=== PATIENT | female | born 1990 | race Two or more races ===

== ENCOUNTER 2017-08-20 23:17 | Inpatient (IN) | payer SELFPAY ==
[~2017-08-20] VITALS: Ht 157.5 cm; Wt 68.9 kg
[2017-08-20] MEDS ORDERED: PENICILLIN G POT 5MILLION UNIT VIAL ONE (23:40)
[2017-08-20] MEDS ORDERED: LACT. RINGERS/OXYTOCIN 20UNITS 1,000 ML IV SCH (23:46)
[2017-08-20] MEDS: LACTATED RINGER'S 1,000 ML IV SCH (23:50)
[2017-08-21] MEDS ORDERED: PENICILLIN G POT 5MIL/D5 50ML 50 ML IV ONE
[2017-08-21] MEDS ORDERED: DERMOPLAST 60ML BOTTLE TOP PRN
[2017-08-21] MEDS ORDERED: LIDOCAINE 2%HCL (LOCAL ANESTH.) INJ 20ML MDV IJ ONE
[2017-08-21] MEDS ORDERED: METHYLERGONOVINE MALEATE 0.2 MG/ML AMP IM PRN
[2017-08-21] MEDS ORDERED: PHISODERM TOP SOLN 240ML BTL TOP PRN
[2017-08-21] MEDS ORDERED: WITCH HAZEL-GLYCERIN PAD TOP PRN
[2017-08-21] MEDS ORDERED: PHISODERM TOP SOLN 240ML BTL TOP ONE (00:49)
[2017-08-21] MEDS ORDERED: DERMOPLAST 60ML BOTTLE TOP ONE (00:49)
[2017-08-21] MEDS ORDERED: LIDOCAINE 2%HCL (LOCAL ANESTH.) INJ 20ML MDV ONE (00:49)
[2017-08-21] MEDS ORDERED: LACT. RINGERS/OXYTOCIN 20UNITS 1,000 ML IV ONE (00:50)
[2017-08-21] MEDS ORDERED: WITCH HAZEL-GLYCERIN PAD TOP ONE (00:50)
[2017-08-21 01:24] LABS: Basophils # (auto) 0.3 uL; Basophils % (auto) 1.8 % (0.0-2.0); Eosinophils # (auto) 0 uL; Eosinophils % (auto) 0.1 % (0.0-7.0); Hematocrit 35.1 % (36.0-46.0); Hemoglobin 11.4 g/dL (12.2-16.2); Lymphocytes # (auto) 2.3 uL; Lymphocytes % (auto) 15.7 % (10.0-50.0); Mean Corpuscular Hemoglobin 28.6 pg (28.0-32.0); Mean Corpuscular Hgb Conc. 32.5 g/dL (32.0-36.0); Mean Corpuscular Volume 88.1 fL (80.0-100.0); Mean Platelet Volume 8.1 fL (6.9-10.8); Monocytes # (auto) 0.9 uL; Monocytes % (auto) 5.9 % (0.0-12.0); Neutrophils # (auto) 11.2 uL; Neutrophils % (auto) 76.5 % (37.0-80.0); Nucleated Red Blood Cells % 0.1 %; Platelet Count (auto) 232 10^3/uL (140-450); Red Cell Distribution Width 14.5 % (11.8-14.3); White Blood Cell 14.6 10^3/uL (4.4-10.8)
[2017-08-21 01:31] LABS: Urine Bilirubin Negative (Negative); Urine Blood 1+ /uL (Negative); Urine Ca Oxalate Crystal FEW (None Seen); Urine Color Yellow (Yellow); Urine Glucose Normal (Normal); Urine Ketone Negative (Negative); Urine Nitrite Negative (Negative); Urine RBC 2 /hpf (0 - 4); Urine Squamous Epithelial Cell MANY /hpf (<5); Urine Urobilinogen Normal (Negative)
[2017-08-21 01:33] LABS: Albumin 2.8 g/dL (3.4-5.0); BUN/Creatinine Ratio 18.5; Calcium 8.7 mg/dL (8.5-10.1); Potassium 3.7 mmol/L (3.5-5.1)
[2017-08-21 01:36] LABS: Bilirubin, Total 0.5 mg/dL (0.2-1.0); INR 0.92 (0.9-1.15); Partial Thromboplastin Time 27.1 sec (22.64-33.71); Total Protein 7.3 g/dL (6.4-8.2)
[2017-08-21] MEDS ORDERED: IBUPROFEN 600 MG TAB PO PRN (02:00)
[2017-08-21] MEDS ORDERED: PENICILLIN G POTASSIUM 2,500,000 UNITS in D5W 5% 50 ML IV SCH (04:00)
[2017-08-21 07:30] VITALS: BP 101/50
[2017-08-21] MEDS: LACTATED RINGER'S 1,000 ML IV SCH (07:46)
[2017-08-21 11:30] VITALS: BP 97/52
[2017-08-21 15:00] VITALS: BP_SYST 87; BP_SYST 89; BP_DIAS 44; BP_DIAS 53
[2017-08-21 15:48] VITALS: BP 90/52
[2017-08-21 19:15] VITALS: BP 91/52
[2017-08-21 22:30] VITALS: BP 98/48
[2017-08-22 03:30] VITALS: BP 98/53
[2017-08-22 06:45] VITALS: BP 89/58
[2017-08-22] MEDS ORDERED: INFLUENZA QUAD 2017-2018 0.5 ML SYRG IM ONE (08:45)
[2017-08-22] MEDS ORDERED: TETANUS-DIPTH-ACEL PERTUSSIS 0.5ML SYRG IM ONE (08:45)
[2017-08-22] MEDS: DOCUSATE CALCIUM 240 MG CAP PO SCH ×2 (10:13→10:14)
[2017-08-22 11:00] VITALS: BP 102/56
[2017-08-22] MEDS ORDERED: PREN-96 PO (11:54)
== END 2017-08-22 15:20 | disposition home or self-care (01) | DRG 775 ==
LOC: OBSVTOIN 23:17 → LDRP 23:17
PROVIDERS: ADMIT Specialist; ATTEND Specialist
PROC: 10E0XZZ Delivery of Products of Conception, External Approach (ICD-10-PCS; principal; 2017-08-21)
PROC: 0KQM0ZZ Repair Perineum Muscle, Open Approach (ICD-10-PCS; 2017-08-21)
PROC: 0UBMXZZ Excision of Vulva, External Approach (ICD-10-PCS; 2017-08-21)
DX: O62.3 Precipitate labor (principal); O70.1 Second degree perineal laceration during delivery; Z37.0 Single live birth; Z3A.40 40 weeks gestation of pregnancy
CPT/HCPCS: 36415; 59025; 59409; 76805; 80053; 80307; 81001; 85025; 85610; 85730; 86592; 86703; 86762; 86850; 86900; 86901; 87340; 90715; 96365; 96366; 96372; J2590; J7060